=== PATIENT | female | born 1975 | race Caucasian/White ===

== ENCOUNTER 2017-10-17 08:24 | Emergency (ER) | END 2017-10-17 10:59 | disposition home or self-care (01) ==

== ENCOUNTER 2018-07-30 22:10 | Emergency (ER) | payer MEDICAID ==
[~2018-07-30] VITALS: Ht 165.1 cm; Wt 84.1 kg
[~2018-07-30 22:10] MED LIST: HYDR-4011 PO
[2018-07-30 22:19] VITALS: Ht 165.1 cm; Wt 84.1 kg
--- NOTE | 2018-07-30 23:59 | ERD ---
ER Documentation Chief Complaint Chief Complaint L Bartholin's cyst X 1 wk, L upper arm swelling X 1 month HPI 45-year-old female complaining of Bartholin's cyst swelling and pain in her ri ght labia times 5 days. Patient states the she had incision and drainage of her proximal cyst abscess 3 times prior. Patient reports subjective fever last night, and took ibuprofen yesterday. She did not take any medication today. Patient also complaining of a swelling in her left arm for 1 month. States that the area is painful. Denies any injury. ROS All systems reviewed and are negative except as per history of present illness. Medications Home Meds Active Scripts Cephalexin* (Keflex*) 500 Mg Capsule, 500 MG PO QID for 7 Days, CAP Prov:MICHELLE HOUSER. FIELD NURSE CASE MANAGER 07/31/18 Ibuprofen* (Motrin*) 600 Mg Tab, 600 MG PO Q6H PRN for PAIN AND OR ELEVATED TEMP, #30 TAB Prov:MICHELLE HOUSER. FIELD NURSE CASE MANAGER 07/31/18 Hydrocodone/Acetaminophen (Wheeler 5-325 Tablet) 1 Each Tablet, 1 TAB PO Q6H PRN for PAIN, #7 TAB Prov:ROBIN COLEMAN MD 10/17/17 Allergies Allergies: Coded Allergies: No Known Allergy (Unverified , 03/31/16) PMhx/Soc History of Surgery: Yes (csection) Anesthesia Reaction: No Hx Neurological Disorder: No Hx Respiratory Disorders: No Hx Cardiac Disorders: No Hx Psychiatric Problems: No Hx Alcohol Use: No Hx Substance Use: No Hx Tobacco Use: No Smoking Status: Never smoker Physical Exam Vitals Vital Signs Date Temp Pulse Resp B/P (MAP) Pulse Ox O2 O2 Flow FiO2 Time Delivery Rate 07/30/18 98.5 94 18 145/69 98 22:19 (94) Physical Exam General: Well-developed, well-nourished, conscious and coherent, in no distress Skin: Warm and dry without rash, good texture and turgor Head: Normocephalic without evidence of trauma Chest: Normal AP diameter. Good expansion without retractions. Nontender. Lungs are clear to auscultate bilaterally with good tidal volume Heart: Regular rate and rhythm. No murmur, rub, or gallops heard Abdomen: Soft and nontender without masses, guarding, or rebound. Bowel sounds are active. No hepatosplenomegaly : External genitalia without lesions or masses. Vaginal vault clear. Cervix normal, no cervical motion tenderness noted. Uterus nontender and normal size. No adnexal tenderness or masses noted. Extremities: A lipoma noted on the left arm, just distal to the left elbow. Nontender. Full range of motion. Good strength bilaterally. No erythema, ecchymosis, or edema. Peripheral pulses are intact. Sensation intact Neuro: Alert and oriented 4, GCS 15. Results 24 hrs Current Medications Medications Dose Sig/Rubi Start Time Status Last (Trade) Ordered Route PRN Stop Time Admin Dose Reason Admin Ibuprofen 600 mg ONCE ONCE 07/31/18 DC 07/30/18 (Motrin) PO 00:00 23:42 07/31/18 00:01 Lidocaine 20 ml ONCE ONCE 07/31/18 DC (Xylocaine SC 00:00 1% (Mdv) 20 07/31/18 00:01 ml) Procedures/MDM 42-year-old female presents the ED with recurrence of cyst abscess. Procedure note: Incision and Drainage Verbal consent obtained for incision and drainage of patient's abscess. The area was prepped with Betadine. Lidocaine 1% was infiltrated for local anesthesia. After appropriate anesthesia, incision was made using #11 blade. Small amount of purulent discharge was drained from the abscess. Manual compression applied. The abscess was probed for loculation. The wound was then cleaned and dressed. Patient tolerated procedure well. Patient also complaining of a swelling on her left elbow. On exam, it appears to be a lipoma. Palpable fracture, dislocation, ligamentous injury. I doubt abscess, cellulitis. Patient appears well, stable for discharge and outpatient management. Medical decision making shared with patient and family. Education provided to patient and family. Patient and family expressed understanding of the plan. Medications on discharge: Ibuprofen, Keflex. Follow-up: Primary care provider in 2-3 days or return to ED if worse. Disclaimer: Inadvertent spelling and grammatical errors are likely due to EHR/dictation software use and do not reflect on the overall quality of patient care. Also, please note that the electronic time recorded on this note does not necessarily reflect the actual time of the patient encounter. Departure Diagnosis: Primary Impression: Bartholin cyst Additional Impression: Lipoma of arm Laterality: left Qualified Codes: D17.22 - Benign lipomatous neoplasm of skin and subcutaneous tissue of left arm Condition: Stable Patient Instructions: Bartholin's Cyst (I And D), Lipoma MICHELLE HOUSER NP Jul 30, 2018 23:59
[2018-07-31] MEDS ORDERED: LIDOCAINE 1% (MDV) 20 ML INJ SC ONE
[2018-07-31] MEDS ORDERED: IBUPROFEN 600 MG TAB PO ONE
[2018-07-31] MEDS ORDERED: CEPH-443 PO (01:01)
[2018-07-31] MEDS ORDERED: IBUP-1542 PO (01:01)
[2018-07-31 01:10] VITALS: BP 122/68; PULSE 84; RESP 18
== END 2018-07-31 01:10 | disposition home or self-care (01) ==
LOC: FTE 22:10
DX: N75.0 Cyst of Bartholin's gland (principal); D17.22 Benign lipomatous neoplasm of skin and subcutaneous tissue of left arm; R40.2412 Glasgow coma scale score 13-15, at arrival to emergency department
CPT/HCPCS: 56420; Z7502; Z7610

== ENCOUNTER 2018-08-02 19:50 | Emergency (ER) | payer MEDICAID ==
[~2018-08-02] VITALS: Ht 165.1 cm; Wt 84.2 kg
[~2018-08-02 19:50] MED LIST changes: +CEPH-443 PO; +IBUP-1542 PO
[2018-08-02 19:53] VITALS: Ht 165.1 cm; Wt 84.2 kg
[2018-08-02] MEDS ORDERED: LIDOCAINE 1% (MDV) 20 ML INJ SC ONE (23:00)
[2018-08-02] MEDS ORDERED: HYDR-4011 PO (23:42)
[2018-08-02] MEDS ORDERED: SULF1TAB31 PO (23:43)
--- NOTE | 2018-08-02 23:52 | ERD ---
ER Documentation Chief Complaint Chief Complaint pt is bib family with c/o pelvic pain for a few days HPI Patient is a 42-year-old female with a history of recurrent Bartholin cysts who presents to the ER for left labial pain. Patient was seen here 2 days ago. She states she underwent incision and drainage of her infected Bartholin cyst.. Patient states since that time the affected area has become "hard". Patient states she has been taking Keflex some elevation of symptoms. Patient denies any fevers or chills. Patient states she continues to have pain. She denies any drainage and she states that the incisional site has closed. Patient denies any dysuria, frequency, urgency or hematuria. ROS All systems reviewed and are negative except as per history of present illness. Medications Home Meds Active Scripts Sulfamethoxazole/Trimethoprim* (Bactrim Ds* Tablet) 1 Each Tablet, 1 TAB PO BID, #14 TAB Prov:LALO FIGUEROA PA-C 08/02/18 Hydrocodone/Acetaminophen (Denton 5-325 Tablet) 1 Each Tablet, 1 TAB PO Q6H PRN for PAIN, #7 TAB Prov:LALO FIGUEROA PA-C 08/02/18 Cephalexin* (Keflex*) 500 Mg Capsule, 500 MG PO QID for 7 Days, CAP Prov:MICHELLE HOUSER. RECORD FILING CLERK 07/31/18 Ibuprofen* (Motrin*) 600 Mg Tab, 600 MG PO Q6H PRN for PAIN AND OR ELEVATED TEMP, #30 TAB Prov:MICHELLE HOUSER. RECORD FILING CLERK 07/31/18 Hydrocodone/Acetaminophen (Denton 5-325 Tablet) 1 Each Tablet, 1 TAB PO Q6H PRN for PAIN, #7 TAB Prov:ROBIN COLEMAN MD 10/17/17 Allergies Allergies: Coded Allergies: No Known Allergy (Unverified , 03/31/16) PMhx/Soc History of Surgery: Yes (csection) Anesthesia Reaction: No Hx Neurological Disorder: No Hx Respiratory Disorders: No Hx Cardiac Disorders: No Hx Psychiatric Problems: No Hx Alcohol Use: No Hx Substance Use: No Hx Tobacco Use: No Smoking Status: Never smoker FmHx Family History: No diabetes Physical Exam Vitals Vital Signs Date Temp Pulse Resp B/P (MAP) Pulse Ox O2 O2 Flow FiO2 Time Delivery Rate 08/02/18 99.1 96 18 136/73 98 19:53 (94) Physical Exam GENERAL: Well-developed, well-nourished female. Appears in no acute distress. HEAD: Normocephalic, atraumatic. EYES: Pupils are equally reactive bilaterally. EOMs grossly intact. No conjunctival erythema. ENT: Moist mucous membranes. No uvula deviation. No kissing tonsils. NECK: Supple. No meningismus. Normal range of motion of the neck. LUNG: Clear to auscultation bilaterally. No rhonchi, wheezing, rales or coarse breath sounds. HEART: Regular rate and rhythm. No murmurs, rubs or gallops. FEMALE GENITALIA: Exam was completed with a talking books library clerk present. RN Letitia present. Left-sided Bartholin cyst noted, area is tender to touch. Indurated area. Minimal fluctuance. No active bleeding or discharge. EXTREMITIES: Equal pulses bilaterally. No peripheral clubbing, cyanosis or edema. No unilateral leg swelling. NEUROLOGIC: Alert and oriented. Moving all four extremities without any difficulty. Normal speech. Steady gait. SKIN: Normal color. Warm and dry. No rashes or lesions. Results 24 hrs Current Medications Medications Dose Sig/Rubi Start Time Status Last (Trade) Ordered Route PRN Stop Time Admin Dose Reason Admin Lidocaine 20 ml ONCE ONCE 08/02/18 DC (Xylocaine SC 23:00 1% (Mdv) 20 08/02/18 23:01 ml) Procedures/MDM INCISION AND DRAINAGE: The patient was verbally consented prior to procedure. Patient was explained the risks, benefits and alternatives to this procedure. Location: L Bartholin gland Abscess size: 2 cm Anesthesia: local 1% lidocaine, 5 cc Preparation: The area was prepped in a sterile fashion using betadine x3 cleanses. A sterile field was prepared. Technique: A sterile 11 blade scalpel was used to make a 1 cm linear incision into the abscess. Procedure: A midline abscess incision was made using a sterile scalpel in a linear fashion. Very slight amount of purulent discharge was expressed with direct pressure. Blunt probing was used to break up loculations. Bleeding was minimal. Packing: half packing was placed into the wound. The patient tolerated the procedure well with no complications. The wound was dressed in sterile gauze. The patient was neurovascularly intact post-procedure. Post-procedural wound care was discussed with the patient. MEDICAL DECISION MAKING: This is a 42-year-old female with a history of recurrent Bartholin cyst presents the ER for concerns of left sided labial pain. Vital signs were reviewed. Patient was afebrile. Given that wound site had closed after previous incision and drainage I did reopen the site and packing was placed. Patient was advised that she will need to use warm compresses to the affected area. Patient was advised to return here in 2 days or follow-up with an AIRCRAFT LAYOUT WORKER for further management of her symptoms. Patient will also be started on Bactrim. Patient given prescription for Denton to help with her pain. The patient has been prescribed Denton during this encounter. The patient has been warned about the use of narcotics. The patient should not drive or operate heavy machinery while taking this medication. The patient was also warned about the addictive properties of narcotic medications. [Narcan prescription was NOT provided given the following criteria: Less than 10 tablets of Denton 5 mg were prescribed. Patient denied history of benzo use. Low suspicion for deep space infection, sepsis. Patient was nontoxic, [id number] prior to discharge. PRESCRIPTIONS: Denton, Bactrim Patient advised to continue taking Keflex as prescribed. DISCHARGE: At this time, the patient is stable for discharge and outpatient management. Post-procedural wound care was discussed with the patient. The patient has been advised to return to the ER in 2 days for a wound check. I have instructed the patient to promptly return to the ER for any new or worsening symptoms including increasing pain, fever, warmth, redness or swelling. The patient and/or family expressed understanding of and agreement with this plan. All questions were answered. Home care instructions were provided. Disclaimer: Inadvertent spelling and grammatical errors are likely due to EHR/dictation software use and do not reflect on the overall quality of patient care. Also, please note that the electronic time recorded on this note does not necessarily reflect the actual time of the patient encounter. Departure Diagnosis: Primary Impression: Bartholin's duct cyst Condition: Fair Patient Instructions: Bartholin's Cyst (No Infection) Referrals: COMMUNITY CLINICS YOU HAVE RECEIVED A MEDICAL SCREENING EXAM AND THE RESULTS INDICATE THAT YOU DO NOT HAVE A CONDITION THAT REQUIRES URGENT TREATMENT IN THE EMERGENCY DEPARTMENT. FURTHER EVALUATION AND TREATMENT OF YOUR CONDITION CAN WAIT UNTIL YOU ARE SEEN IN YOUR DOCTORS OFFICE WITHIN THE NEXT 1-2 DAYS. IT IS YOUR RESPONSIBILITY TO MAKE AN APPOINTMENT FOR FOLOW-UP CARE. IF YOU HAVE A PRIMARY DOCTOR --you should call your primary doctor and schedule an appointment IF YOU DO NOT HAVE A PRIMARY DOCTOR YOU CAN CALL OUR PHYSICIAN REFERRAL HOTLINE AT IF YOU CAN NOT AFFORD TO SEE A PHYSICIAN YOU CAN CHOSE FROM THE FOLLOWING [facility] [address] [facility] [address] [facility]. [facility] [address] [facility] [address] [facility] [address] [facility] [facility] [address] [facility] YOU HAVE RECEIVED A MEDICAL SCREENING EXAM AND THE RESULTS INDICATE THAT YOU DO NOT HAVE A CONDITION THAT REQUIRES URGENT TREATMENT IN THE EMERGENCY DEPARTMENT. FURTHER EVALUATION AND TREATMENT OF YOUR CONDITION CAN WAIT UNTIL YOU ARE SEEN IN YOUR DOCTORS OFFICE WITHIN THE NEXT 1-2 DAYS. IT IS YOUR RESPONSIBILITY TO MAKE AN APPOINTMENT FOR FOLOW-UP CARE. IF YOU HAVE A PRIMARY DOCTOR --you should call your primary doctor and schedule and appointment IF YOU DO NOT HAVE A PRIMARY DOCTOR YOU CAN CALL OUR PHYSICIAN REFERRAL HOTLINE AT . IF YOU CAN NOT AFFORD TO SEE A PHYSICIAN YOU CAN CHOSE FROM THE FOLLOWING [facility]: [facility] [address] [place] [address] [facility] [address] [place] [address] [facility] [address] [place] [address] [employer] [place] [address] [facility] [address] [place] [address] OFFICE FAX BENJA TORRES [address] [place] [address] [facility] [address] [place] [address] DR HUGHES, HESHMAT [address] [facility], [address], [place] [address] DR MARCOS-DUANE, [facility] [address] [facility], [place] [address] [facility] [address] [place] [address] [address] [facility], [facility] [address] - DR ACUÑA, CHANEL [address], [place] [address] [place] [address] [facility]. [address], [place] [address] DR MITCHELL, FARID [address] [place], [place] [id number] Additional Instructions: Ponga compresas calientes. Mary Jo antibioticos. [facility]. Llame al doctor MAANA y alan stacy JARVIS PARA DENTRO DE 1-2 GUEVARA.Dgale a la secretaria que nosotros le instruimos hacer esta jarvis.Avise o llame si curtis condicin se empeora antes de la jarvis. Regresa aqui si peor o no mejor. LALO FIGUEROA PA-C Aug 02, 2018 23:52
[2018-08-03 00:23] VITALS: BP 137/71; PULSE 80; RESP 19
== END 2018-08-03 00:24 | disposition home or self-care (01) ==
LOC: FTE 19:50
DX: N75.0 Cyst of Bartholin's gland (principal)
CPT/HCPCS: 56420; Z7502; Z7610

== ENCOUNTER 2018-10-11 18:20 | Emergency (ER) | payer MEDICAID ==
[~2018-10-11] VITALS: Ht 154.9 cm; Wt 83.4 kg
[~2018-10-11 18:20] MED LIST changes: +SULF1TAB31 PO
[2018-10-11 18:40] VITALS: Ht 154.9 cm; Wt 83.4 kg
[2018-10-11] MEDS ORDERED: NITR-58 PO (20:58)
--- NOTE | 2018-10-11 20:58 | ERD ---
ER Documentation Chief Complaint Chief Complaint painful urination x3 days. +blood and fever today. HPI Patient is 42-year-old male who presents to the ER for concerns of dysuria times 3 days. Patient states this morning she noticed some specks of blood in her urine. Patient reports to generalized lower back pain radiating down her bilateral legs. She denies any nausea or vomiting. Patient admits to tactile fevers however she did not check her temperature with thermometer. Patient denies any upper abdominal pain however she does have some mild suprapubic pain. Patient's last menstrual period was 4-2-19 ROS All systems reviewed and are negative except as per history of present illness. Medications Home Meds Active Scripts Ibuprofen* (Motrin*) 600 Mg Tab, 600 MG PO Q6, #30 TAB Prov:LALO FIGUEROA-C 10/11/18 Nitrofurantoin Monohyd Macrocr* (Macrobid*) 100 Mg Capsr, 100 MG PO BID for 5 Days, CAP Prov:LALO FIGUEROA-C 10/11/18 Sulfamethoxazole/Trimethoprim* (Bactrim Ds* Tablet) 1 Each Tablet, 1 TAB PO BID, #14 TAB Prov:LALO FIGUEROA-C 08/02/18 Hydrocodone/Acetaminophen (Falkner 5-325 Tablet) 1 Each Tablet, 1 TAB PO Q6H PRN for PAIN, #7 TAB Prov:LALO FIGUEROA-C 08/02/18 Cephalexin* (Keflex*) 500 Mg Capsule, 500 MG PO QID for 7 Days, CAP Prov:MICHELLE HOUSER. COMPLAINT ADJUSTER 07/31/18 Ibuprofen* (Motrin*) 600 Mg Tab, 600 MG PO Q6H PRN for PAIN AND OR ELEVATED TEMP, #30 TAB Prov:MICHELLE HOUSER. COMPLAINT ADJUSTER 07/31/18 Hydrocodone/Acetaminophen (Falkner 5-325 Tablet) 1 Each Tablet, 1 TAB PO Q6H PRN for PAIN, #7 TAB Prov:ROBIN COLEMAN MD 10/17/17 Allergies Allergies: Coded Allergies: No Known Allergy (Unverified , 10/11/18) PMhx/Soc Medical and Surgical Hx: pt denies Medical Hx History of Surgery: Yes (csection) Anesthesia Reaction: No Hx Neurological Disorder: No Hx Respiratory Disorders: No Hx Cardiac Disorders: No Hx Psychiatric Problems: No Hx Alcohol Use: No Hx Substance Use: No Hx Tobacco Use: No Smoking Status: Never smoker FmHx Family History: No diabetes Physical Exam Vitals Vital Signs Date Temp Pulse Resp B/P (MAP) Pulse Ox O2 O2 Flow FiO2 Time Delivery Rate 10/11/18 98.3 96 20 135/66 98 18:40 (89) Physical Exam GENERAL: Well-developed, well-nourished female. Appears in no acute distress. HEAD: Normocephalic, atraumatic. EYES: Pupils are equally reactive bilaterally. EOMs grossly intact. No conjunctival erythema. ENT: Moist mucous membranes. No uvula deviation. No kissing tonsils. NECK: Supple. No meningismus. Normal range of motion of the neck. LUNG: Clear to auscultation bilaterally. No rhonchi, wheezing, rales or coarse breath sounds. HEART: Regular rate and rhythm. No murmurs, rubs or gallops. ABDOMEN: No scars, ecchymosis or rashes noted. Soft,and nondistended. Tender to palpation in the suprapubic region. Positive bowel sounds in all four quadrants . No rebound tenderness, no guarding. (-) McBurney's point tenderness. No CVA tenderness. BACK: No midline tenderness. EXTREMITIES: Equal pulses bilaterally. No peripheral clubbing, cyanosis or edema. No unilateral leg swelling. NEUROLOGIC: Alert and oriented. Moving all four extremities without any difficulty. Normal speech. Steady gait. SKIN: Normal color. Warm and dry. No rashes or lesions. Results 24 hrs Laboratory Tests Test 10/11/18 20:58 Bedside Urine pH (LAB) 5.5 Bedside Urine Protein (LAB) Negative Bedside Urine Glucose (UA) Negative Bedside Urine Ketones (LAB) Negative Bedside Urine Blood 3+ Bedside Urine Nitrite (LAB) Negative Bedside Urine Leukocyte Esterase (L 2+ Procedures/MDM MEDICAL DECISION MAKING: This is a 42-year-old female presents the ER for concerns of dysuria times 3 da ys.. Vital signs were reviewed. Patient was afebrile. UA did show 2+ leukocyte esterase, 3+ blood. Urine was negative. Given these findings, the patient's presentation is most consistent with urinary tract infection. I have a much lower clinical concern for pyelonephritis, nephrolithiasis, appendicitis, diverticulitis, ectopic , PID, ovarian torsion, or tubo-ovarian abscess. PRESCRIPTIONS: Macrobid, Ibuprofen DISCHARGE: At this time, patient is stable for discharge and outpatient management. I have instructed the patient to follow-up with his/her primary care physician in 1-2 days. Patient should repeat UA in 2 weeks to check for resolution of urinary tract infection. If symptoms persist, patient may need to see a specialist for further examinations and testing. I have instructed the patient to promptly return to the ER at any time for any new or worsening symptoms including increased pain, fever, nausea, vomiting, urinary changes or weakness. The patient and/or family expressed understanding of and agreement with this plan. All questions were answered. Home care instructions were provided. Disclaimer: Inadvertent spelling and grammatical errors are likely due to EHR/dictation software use and do not reflect on the overall quality of patient care. Also, please note that the electronic time recorded on this note does not necessarily reflect the actual time of the patient encounter. Departure Diagnosis: Primary Impression: UTI (urinary tract infection) Urinary tract infection type: site unspecified Hematuria presence: with hematuria Qualified Codes: N39.0 - Urinary tract infection, site not specified; R31.9 - Hematuria, unspecified Condition: Fair Patient Instructions: Understanding Urinary Tract Infections (UTIs) Referrals: [facility] YOU HAVE RECEIVED A MEDICAL SCREENING EXAM AND THE RESULTS INDICATE THAT YOU DO NOT HAVE A CONDITION THAT REQUIRES URGENT TREATMENT IN THE EMERGENCY DEPARTMENT. FURTHER EVALUATION AND TREATMENT OF YOUR CONDITION CAN WAIT UNTIL YOU ARE SEEN IN YOUR DOCTORS OFFICE WITHIN THE NEXT 1-2 DAYS. IT IS YOUR RESPONSIBILITY TO MAKE AN APPOINTMENT FOR FOLOW-UP CARE. IF YOU HAVE A PRIMARY DOCTOR --you should call your primary doctor and schedule an appointment IF YOU DO NOT HAVE A PRIMARY DOCTOR YOU CAN CALL OUR PHYSICIAN REFERRAL HOTLINE AT IF YOU CAN NOT AFFORD TO SEE A PHYSICIAN YOU CAN CHOSE FROM THE FOLLOWING [facility] CLINICS [facility] [address] [facility] [address] [facility] [address] [facility] [address] [facility] [address] [facility]. [facility] [address] [facility]. [facility] YOU HAVE RECEIVED A MEDICAL SCREENING EXAM AND THE RESULTS INDICATE THAT YOU DO NOT HAVE A CONDITION THAT REQUIRES URGENT TREATMENT IN THE EMERGENCY DEPARTMENT. FURTHER EVALUATION AND TREATMENT OF YOUR CONDITION CAN WAIT UNTIL YOU ARE SEEN IN YOUR DOCTORS OFFICE WITHIN THE NEXT 1-2 DAYS. IT IS YOUR RESPONSIBILITY TO MAKE AN APPOINTMENT FOR FOLOW-UP CARE. IF YOU HAVE A PRIMARY DOCTOR --you should call your primary doctor and schedule and appointment IF YOU DO NOT HAVE A PRIMARY DOCTOR YOU CAN CALL OUR PHYSICIAN REFERRAL HOTLINE AT . IF YOU CAN NOT AFFORD TO SEE A PHYSICIAN YOU CAN CHOSE FROM THE FOLLOWING [facility] INSTITUTIONS: [facility] [address] [place] [address] [facility] [address] [place] [address] [facility] [address] [place] [address] Additional Instructions: Llame al doctor MAANA y alan stacy JARVIS PARA DENTRO DE 1-2 GUEVARA.Dgale a la secretaria que nosotros le instruimos hacer esta jarvis.Avise o llame si curtis condicin se empeora antes de la jarvis. Regresa aqui si peor o no mejor. LALO FIGUEROA PA-C Oct 11, 2018 20:58
[2018-10-11] MEDS ORDERED: IBUP-1542 PO (21:01)
[2018-10-11 21:18] VITALS: BP 139/76; PULSE 73; RESP 18
== END 2018-10-11 21:19 | disposition home or self-care (01) ==
LOC: FTE 18:20
DX: N39.0 Urinary tract infection, site not specified (principal)
CPT/HCPCS: 81003; 81025; Z7502; 99283